=== PATIENT | male | born 1975 | race Asian ===

== ENCOUNTER 2024-05-28 11:40 | Emergency (ER) | payer OTHER ==
[2024-05-28 11:46] VITALS: BP 130/86; PULSE 94; RESP 18; TEMP 98.6; BMI 26.6
[2024-05-28] MEDS: METOCLOPRAMIDE HCL 10 MG TABLET (FP) PO ONE (12:34)
[2024-05-28] MEDS ORDERED: METOCLOPRAMIDE HCL INJECTION 10 MG/2 ML VIAL ONE (12:40)
[2024-05-28] MEDS ORDERED: FAMOTIDINE 20 MG TABLET ONE (12:40)
[2024-05-28] MEDS ORDERED: GABAPENTIN 300 MG CAPSULE ONE (12:40)
[2024-05-28] MEDS ORDERED: MAG HYDROX/AL HYDROX/SIMETH 30 ML UNIT-DOSE CUP ONE (12:41)
[2024-05-28] MEDS: METOCLOPRAMIDE HCL INJECTION 10 MG/2 ML VIAL IVPB ONE (12:55)
[2024-05-28] MEDS: FAMOTIDINE 20 MG TABLET PO ONE (12:55)
[2024-05-28] MEDS: MAG HYDROX/AL HYDROX/SIMETH 30 ML UNIT-DOSE CUP PO ONE (12:55)
[2024-05-28] MEDS: GABAPENTIN 300 MG CAPSULE PO ONE (12:55)
[2024-05-28 13:02] LABS: BASO % 0.2 % (0-2.0); EOS % 0.9 % (0-4.5); HEMATOCRIT 44.5 % (35.4-49); LYMPH % 13.4 % (8-40); MCH 29.9 pg (25.7-33.7); MCHC 33.8 g/dl (32.0-35.9); MEAN CELL VOLUME 88.6 fl (80-96); MEAN PLT VOLUME 6.2 fl (7.5-11.1); MONO % 6.2 % (3.8-10.2); NEUT % 79.3 % (42.8-82.8); PLATELET COUNT 319 10^3/uL (134-434); RBC 5.02 M/mm3 (4.00-5.60); RDW 12.9 % (11.9-15.9)
[2024-05-28 13:12] LABS: POTASSIUM 4.2 mmol/L (3.5-5.1)
[2024-05-28 13:13] LABS: INR 1.01 (0.83-1.09)
[2024-05-28 13:14] LABS: ALBUMIN 4.5 g/dl (3.4-5.0); CALCIUM 9.7 mg/dL (8.5-10.1)
[2024-05-28 13:15] LABS: BLOOD UREA NITROGEN 15.4 mg/dL (7-18); MAGNESIUM 2.2 mg/dL (1.8-2.4)
[2024-05-28 13:16] LABS: ACTIVATED PTT 29.4 SECONDS (25.2-36.5)
[2024-05-28 13:18] LABS: CREATININE 1.3 mg/dL (0.55-1.3)
[2024-05-28 13:19] LABS: BILIRUBIN,TOTAL 0.7 mg/dL (0.2-1); TOT PROT 8.2 g/dl (6.4-8.2)
[2024-05-28] MEDS ORDERED: BACLOFEN 10 MG TABLET (FP) ONE (15:54)
[2024-05-28] MEDS: BACLOFEN 10 MG TABLET (FP) PO ONE (16:03)
== END 2024-05-28 16:28 | disposition home or self-care (01) ==
LOC: JER 11:40
PROC: 3E033GC Introduction of Other Therapeutic Substance into Peripheral Vein, Percutaneous Approach (ICD-10-PCS; principal; 2024-05-28)
DX: R06.6 Hiccough (principal); R10.13 Epigastric pain; M62.89 Other specified disorders of muscle
CPT/HCPCS: 36415; 71045-TC-FY; 74177-TC; 80053; 83690; 83735; 84484; 85025; 85610; 85730; 93005; 93010; 99285-25; J0475